=== PATIENT | female | born 1980 | race Caucasian/White ===

== ENCOUNTER 2016-12-04 09:57 | Inpatient (IN) ==
[2016-12-04] MEDS ORDERED: CeFAZolin Pre 2,000 MG/100 ML 2,000 MG/100 ML BAG IVPB ONE (10:23)
[2016-12-04] MEDS ORDERED: Famotidine 20 MG/2 ML VIAL IVP ONE (10:23)
[2016-12-04] MEDS ORDERED: Oxytocin 20 units/ LR 1000 mL 20 UNIT/1,000 ML BAG IVC ONE (10:23)
[2016-12-04] MEDS ORDERED: Famotidine 20 MG/2 ML VIAL IVP PRN (10:23)
[2016-12-04] MEDS ORDERED: Metoclopramide 10 MG/2 ML VIAL IVP ONE (10:23)
[2016-12-04] MEDS: Ringers Solution, Lactated 1,000 ML IVC SCH ×3 (10:46→19:53)
[2016-12-04 10:49] LABS: Basophils % 0.6 %; Eosinophils # 0.2 K/mcL (0.0-0.6); Eosinophils % 2.4 %; Hematocrit 35.3 % (35.3-44.9); Hemoglobin 12.2 g/dL (11.5-15.4); Immature Granulocytes % 0.6 % (0-4); Lymphocytes % 27.9 %; Mean Corpuscular HGB Conc 34.6 g/dL (31.6-35.5); Mean Corpuscular Hemoglobin 31.7 pg (28.0-33.3); Mean Corpuscular Volume 91.7 fL (83.0-100.0); Mean Platelet Volume 10.9 fL (9.4-12.4); Monocytes # 0.5 K/mcL (0.0-1.3); Monocytes % 6.3 %; Neutrophils # 4.4 K/mcL (1.6-8.9); Platelet Count 162 K/mcL (140-400); Red Blood Count 3.85 M/mcL (3.82-4.97); Red Cell Distribution Width 13.2 % (11.5-14.5); Segmented Neutrophils % 62.2 %
--- NOTE | 2016-12-04 10:59 | OB/GYN History & Physical ---
Date of Encounter: 12/04/16 Time of Encounter: 10:46 Assessment and Plan (1) 37 weeks gestation of Current visit: Yes Status: Acute Admit for scheduled medically necessary 37 week 0 day repeat LTCS Routine pre-op orders Fetus reactive on NST; category I; FHTs 120 with 15x15 accels and no decels. No contractions noted. Dr Gavin zavala patient is here (2) Previous delivery affecting , antepartum Current visit: Yes Status: Acute Admit for scheduled medically necessary 37 week 0 day repeat LTCS Routine pre-op orders Fetus reactive on NST; category I; FHTs 120 with 15x15 accels and no decels. No contractions noted. Dr Gavin zavala patient is here (3) Intrauterine growth restriction (IUGR) affecting care of mother, third trimester, single gestation Current visit: Yes Status: Acute Fetus less than 10th percentile per ultrasound on 12/01/16. Admit for scheduled medically necessary 37 week 0 day repeat LTCS Routine pre-op orders Fetus reactive on NST; category I; FHTs 120 with 15x15 accels and no decels. No contractions noted. Dr Gavin zavala patient is here History of Present Illness Chief complaint: Scheduled Repeat LTCS HPI: Ms. Graham is a 36 year old female at 37w 0 days gestation that presents for a scheduled repeat LTCS. Her was complicated by Post lap band procedure, advanced maternal age, and intrauterine growth restriction with an SGA fetus that measured less than 10th percentile on 12/01/16. Her blood type in is O negative. She is GBS negative. Her serology is as follows: Rubella immune , HbSAG nonreactive, HIV nonreactive, Varicella immune, and T-Pallidum negative. She states that her fetus is active and she denies vaginal bleeding/ discharge, headache, vision changes, epigastric pain, and cramping/contractions. Her most recent ultrasound was on 12/01/2016; Findings: The fetus is in the VTX position, the placenta is posterior grade 2. heart rate ranges from 115-123. The DONADL 12/26/16, 36w3d, UTS 32w4d, the efw is 2090 g <10% or 4lb 10oz , the ROHINI is 10cm. S/d ratio has good forward diastolic flow. -2.27/.56 Past Med Surg Social Fam HX - Past Medical History Medical history: no medical history Psychiatric history: no psych history - Past Surgical History Surgical History: , cholecystectomy, other, bariatric surgery - Social History Smoking Status: Never smoker Smokeless Tobacco Status: No Alcohol use: none Drug use: none Obstetrical History - Pregnancies : 2 Para: 1 Term: 1 (37 weeks) : 0 Ab's: 0 Livin Medications and Allergies Macrobid 1 tab PO BID 12/04/16 [History] Omeprazole [Omeprazole] 2 tab PO DAILY 12/04/16 [History] Vit Calc,Iron,Folic [ Vitamins] 1 tab PO DAILY 12/04/16 [ History] Allergies No Known Allergies Allergy (Verified 12/04/16 10:21) Review of System OB All systems PM: reviewed and no additional remarkable complaints except as stated Exam - Constitutional Constitutional: well developed, well nourished, no acute distress, average body habitus - HEENT HEENT: Normocephaly, Mucus Membranes Moist - Neck Neck exam: full ROM - Lungs Respiratory exam: CTAB - Cardiovascular Cardiovascular exam: RRR, +S1, +S2 - Abdomen Abdomen: Present: bowel sounds normal, gravid, non tender - Extremities Extremities exam: normal capillary refill, normal inspection, radial pulses palpable and symetrical Deep Tendon Reflex Grade: 2+ Normal - Uterus Uterus exam: Present: normal size (gravid) Results All other labs normal. - VTE Reasons for not Prescribing Prophylaxis: Treatment not Indicated - Low risk for VTE
--- NOTE | 2016-12-04 11:44 | Anesthesia Evaluation PreOp ---
Date of Encounter: 12/04/16 Time of Encounter: 11:30 - Past History Planned Operation: Repeat CSection Cardiac History: Other (Anemia) Pulmonary History: Denies Any Significant HX LOADING SHOVEL OILER History: Denies Any Significant HX Other Medical History: GERD Anesthesia History: No Prior Anesthetic Complications, Past Anesthesia (Stat CSection under GA) : Yes (37wks) Alcohol Use: none Drug use: none Medications and Allergies Macrobid 1 tab PO BID 12/04/16 [History] Omeprazole [Omeprazole] 2 tab PO DAILY 12/04/16 [History] Vit Calc,Iron,Folic [ Vitamins] 1 tab PO DAILY 12/04/16 [ History] Allergies No Known Allergies Allergy (Verified 12/04/16 10:21) - Meds/Allergy Pre-op Review Medications Reviewed: Yes Allergies Reviewed: Yes Beta Blockers on Current Med List: No Anesthesia Results - Labs 12/04/16 10:40 Anesthesia Exam Height: 1.57m Weight: 61.4kg NPO (# of Hours): >8hr Pain Scale: 0 Pain Scale Used: Numeric (1 - 10) - HEENT Pupil (Motor): Pupils equal Mallampati: II Teeth: Normal Oral Opening: Greater than 3 - LOADING SHOVEL OILER LOC: Oriented LOADING SHOVEL OILER Motor: Normal RUE, Normal LUE, Normal RLE, Normal LLE, Normal Face LOADING SHOVEL OILER Sensory: Normal: RUE, LUE, RLE, LLE, Face - Cardiac Rhythm: Regular Murmur: None JVD: No Carotid Bruit: No - Pulmonary Breath Sounds: bilateral Clear Respiratory Effort: Symmetrical Anesthesia Assess/Plan ASA Score: 2 Modified [place] Scale for Level of Consciousness: Cooperative, oriented, and tranquil Anesthetic Plan: Regional Monitoring Plan: Standard Monitors Recovery Plan: PACU
[2016-12-04] MEDS ORDERED: *HR* Oxytocin 10 UNIT/ML VIAL IM ONE ×2 (11:46→12:52)
[2016-12-04] MEDS ORDERED: *HR* FentaNYL (PF) 100 MCG/2 ML VIAL ONE (11:46)
[2016-12-04] MEDS ORDERED: *HR* Morphine Sulfate/PF 5 MG/10 ML AMPUL ONE (11:46)
[2016-12-04] MEDS ORDERED: EPHEDrine 50 MG/ML VIAL ONE (12:07)
[2016-12-04] MEDS ORDERED: Ondansetron 4 MG/2 ML VIAL IVP PRN ×2 (12:25→15:38)
[2016-12-04] MEDS ORDERED: *HR* HYDROmorphone (PF) 1 MG/ML SYRINGE IVP PRN (12:25)
[2016-12-04] MEDS ORDERED: Naloxone 0.4 MG/ML INJ IVP PRN ×2 (12:25→16:43)
[2016-12-04] MEDS ORDERED: Ringers Solution, Lactated 1,000 ML ONE (12:51)
--- NOTE | 2016-12-04 13:15 | OB/GYN Procedure Note ---
Section - Date of procedure: 12/04/16 Preop diagnosis: other ( at 37 0/7 wk., IUGR <10%, Previous section x1) Post-op diagnosis: same Procedure: repeat low transverse Surgeon: Artur Alonso Estimated blood loss (cc): 300 Nat Instructor: Diana Aquino ([email or web address]) Anesthesiologist: Art Louise Weapons Designer: Marvin Saha Anesthesia Type: Spinal section complications: none Disposition: L&D Recovery Room Specimens: Placenta, Cord blood - Infant (s) A Delivery Date: 12/04/16 Delivery Time: 12:33 Presentation: vertex Position: JACKI Route of delivery: other ( section) Gender: Female Viability: Viable Pounds: 4 Ounces: 7 Gram Weight: 2.015 kg at 1 minute: 8 at 5 minutes: 9 Shoulder Dystocia: not encountered Specimens collected: cord blood Placenta: spontaneous Cord: 3 umbilical vessels - Narrative Narrative: Patient is a 36-year-old 2 para 1 at 37-0/7 weeks who was brought in for repeat section secondary to IUGR. Patient had an ultrasound at the end of last week which placed the baby less than the 10th percentile for growth. All measurements were at the 2. 5th percentile. Biophysical was 10 out of 10. The SD ratio was 2.27 within the normal limits. Case was discussed with one of our partners who agreed waiting for 37 weeks then doing a repeat section. Procedure: Patient was taken to the operating room where spinal anesthesia was found be adequate. She was placed in the dorsal supine position with leftward tilt and prepped and draped in usual fashion. A timeout was then obtained. A Pfannenstiel incision was made with a scalpel removing all scar. Incision was then carried down through the underlying tissue to the fascia was identified. Fascia was nicked in the midline extended laterally with Irving scissors. The superior and inferior edges of the fascia grasped tented up and dissected off rectus muscles. Rectus muscles were in the midline parietal peritoneum was identified tented up and entered sharply. This was extended superiorly and inferiorly with Metzenbaum scissors. Bladder blade was inserted and vesicouterine peritoneum was identified tented up and entered sharply. This was extended laterally and the bladder flap created digitally. Lower uterine segment was incised with a scalpel and extended laterally with digital manipulation. Membranes ruptured clear fluid noted. Infant's head was delivered and nuchal cord body then was delivered of discomfort and cut and was handed off to waiting pediatric team. Cord blood was collected placenta was spontaneously delivered and the uterus was exteriorized and cleaned of all clots and debris. The lower uterine segment was then closed using an 0 Vicryl in a running locking stitch by a 2 layer closure. Good hemostasis was noted uterus is returned to the abdomen and gutters were cleaned of all clots and debris then copiously irrigated. No active bleeding noted the fascia was closed using a #1 Stratafix suture in a running stitch and the skin was closed using 4-0 Vicryl subcuticular manner. All needles lap sponge counts were correct 3 she did receive preoperative antibiotics patient will be taken to the recovery room observed for 2 hours before being taken floor.
[2016-12-04] MEDS ORDERED: Sennosides 8.6 MG TABLET PO PRN (15:38)
[2016-12-04] MEDS ORDERED: *HR* OxyCODONE/APAP 10/325 TABLET PO PRN (15:38)
[2016-12-04] MEDS ORDERED: Metoclopramide 10 MG/2 ML VIAL IVP PRN (15:38)
[2016-12-04] MEDS ORDERED: *HR* Morphine 2 MG/ML SYRINGE IVP PRN (16:43)
--- NOTE | 2016-12-04 16:47 | Anesthesia Evaluation Post Op ---
Date of Encounter: 12/04/16 Time of Encounter: 13:00 - Vital Signs Vital Signs: Vital Signs 12/04/16 15:30 12/04/16 16:02 12/04/16 16:30 Temperature 97.3 F L 97.6 F 97.4 F L Pulse Rate 59 60 62 Respiratory Rate 14 16 16 Blood Pressure 111/70 112/71 104/69 O2 Sat by Pulse Oximetry 100 100 96 - Lungs Lungs: Clear Ascult./Percussion - Airway Airway: Non-obstructed - Cardiovascular Regular Rate - Mental Status Mental Status: Alert & Oriented, Answers Appropriately - Pain Pain Scale: 5 Pain Scale used: Numeric (1 - 10) - Nausea Vomiting Nausea Vomiting: Not Present - Hydration Hydration: Ice chips, Tavarez catheter - Discharge PostOp Status: Transfer Patient to floor Attestation: Patient stable and communicative. MOEx4. Meets criteria for floor transfer.
[2016-12-04] MEDS: *HR* HYDROmorphone (PF) 1 MG/ML SYRINGE IVP PRN ×2 (18:08→20:58)
[2016-12-04] MEDS: Simethicone 80 MG TAB.CHEW PO PRN (19:52)
[2016-12-05] MEDS: *HR* OxyCODONE/APAP 5/325 TABLET PO PRN ×4 (01:00→21:10)
[2016-12-05] MEDS: Ibuprofen 600 MG TABLET PO PRN ×3 (03:57→15:45)
[2016-12-05] MEDS: Ringers Solution, Lactated 1,000 ML IVC SCH (03:58)
[2016-12-05 04:48] LABS: Basophils % 0.3 %; Eosinophils % 0.2 %; Hematocrit 32.3 % (35.3-44.9); Hemoglobin 10.8 g/dL (11.5-15.4); Immature Granulocytes % 0.6 % (0-4); Mean Corpuscular HGB Conc 33.4 g/dL (31.6-35.5); Mean Corpuscular Hemoglobin 30.5 pg (28.0-33.3); Mean Corpuscular Volume 91.2 fL (83.0-100.0); Mean Platelet Volume 10.9 fL (9.4-12.4); Monocytes # 0.4 K/mcL (0.0-1.3); Monocytes % 3.3 %; Neutrophils # 11.3 K/mcL (1.6-8.9); Platelet Count 145 K/mcL (140-400); Red Blood Count 3.54 M/mcL (3.82-4.97); Red Cell Distribution Width 12.8 % (11.5-14.5); Segmented Neutrophils % 87.6 %
[2016-12-05] MEDS ORDERED: NON-FORMULARY MEDICATION 1 EACH EACH (Prenatal Vit Calc,Iron,Folic [Prenatal Vitamins] 1 T PO SCH (09:00)
[2016-12-05] MEDS ORDERED: Prenatal Vit/FA 1 EACH TABLET PO SCH (09:00)
[2016-12-05] MEDS: Simethicone 80 MG TAB.CHEW PO PRN (09:36)
--- NOTE | 2016-12-05 10:20 | OB/GYN Progress Note ---
Date of Encounter: 12/05/16 Time of Encounter: 10:18 - Assessment and Plan (1) delivery delivered Current Visit: Yes Status: Acute Stable postop day #1 Continue current management plan anticipate discharge tomorrow Subjective - Subjective Interval history: Patient resting in bed no complaints at this time Tavarez remains in place Patient reports: pain well controlled, other (Tavarez in place. ) [place]: doing well Objective - Vital Signs Latest vital signs: Vital Signs Temp Pulse Resp BP Pulse Ox 12/05/16 10:06 16 12/05/16 08:00 97.6 F 58 16 115/79 96 12/05/16 03:50 16 12/05/16 03:46 98.1 F 48 16 115/70 95 12/05/16 00:40 98.2 F 65 16 112/62 95 12/04/16 20:28 98.0 F 66 14 112/69 94 12/04/16 18:40 97.9 F 66 16 111/64 96 12/04/16 18:30 97.9 F 66 16 111/64 96 12/04/16 17:30 97.6 F 68 16 111/76 96 12/04/16 16:30 97.4 F L 62 16 104/69 96 12/04/16 16:02 97.6 F 60 16 112/71 100 12/04/16 15:30 97.3 F L 59 14 111/70 100 Intake and Output 12/04/16 12/05/16 12/05/16 23:59 07:59 15:59 Intake Total 60 / 60 975 / 975 260 / 260 Output Total 200 / 200 50 / 50 Balance -140 / -140 925 / 925 260 / 260 Intake: IV Fluids 975 / 975 Lactated Ringers 1,000 ML 975 / 975 @ 125 mls/hr IVC .Q8H [facility] Rx#:[id number] Oral 60 / 60 0 / 0 260 / 260 Output: Catheter 200 / 200 50 / 50 Other: Stool Characteristics Normal for Patient Normal for Patient - Exam Lungs: bilateral: normal Chest: Normal S1, Normal S2 Extremities: Present: normal Abdomen: Present: normal appearance, soft Incision: Present: dressed Uterus: Present: firm - Labs Labs: Laboratory Results - last 24 hr 12/04/16 12/04/16 12/05/16 10:40 13:30 04:06 WBC 7.1 12.9 H D RBC 3.85 3.54 L Hgb 12.2 10.8 L Hct 35.3 32.3 L MCV 91.7 91.2 MCH 31.7 30.5 MCHC 34.6 33.4 RDW 13.2 12.8 Plt Count 162 145 MPV 10.9 10.9 Immature Gran % 0.6 0.6 Seg Neutrophils % 62.2 87.6 Lymphocytes % 27.9 8.0 Monocytes % 6.3 3.3 Eosinophils % 2.4 0.2 Basophils % 0.6 0.3 Neutrophils # 4.4 11.3 H Lymphocytes # 2.0 1.0 Monocytes # 0.5 0.4 Eosinophils # 0.2 0.0 Basophils # 0.0 0.0 Screen NEGATIVE Baby's Blood Type O RH POSITIVE Mother's Blood Type O RH NEGATIVE Rhogam Indicated YES Rhogam Req for Mother 1
--- NOTE | 2016-12-06 08:04 | Discharge Summary ---
Date of Encounter: 12/06/16 Time of Encounter: 08:01 - Discharge Diagnosis (1) Breast feeding status of mother Priority: Secondary Status: Acute Comments: support prn (2) delivery delivered Priority: Primary Status: Acute Comments: continue routine postop/ care discharge home today follow up in 2 weeks for incision check with Dr. Alonso - Discharge Medications Prescriptions: OxyCODONE/APAP 5/325 [Percocet 5/325 MG] 1 each PO Q4HR PRN #30 tablet PRN Reason: Moderate pain 4-6 Ibuprofen [Motrin] 600 mg PO Q6HR PRN #60 tablet PRN Reason: Cramping Breast Pump [BREAST PUMP] 1 each .ROUTE AD #1 each Docusate [Colace] 100 mg PO BID #60 capsule Home Medications: Vit Calc,Iron,Folic [ Vitamins] 1 tab PO DAILY 12/04/16 [ History] Breast Pump [BREAST PUMP] 1 each .ROUTE AD #1 each 12/06/16 [Rx] Docusate [Colace] 100 mg PO BID #60 capsule 12/06/16 [Rx] Ibuprofen [Motrin] 600 mg PO Q6HR PRN #60 tablet 12/06/16 [Rx] OxyCODONE/APAP 5/325 [Percocet 5/325 MG] 1 each PO Q4HR PRN #30 tablet 12/06/16 [Rx] Vit/FA 1 each PO DAILY tablet 12/06/16 [Rx] Allergies/Adverse Reactions: Allergies No Known Allergies Allergy (Verified 12/04/16 10:21) Data Procedures and tests throughout hospitalization: Laboratory Tests 12/04/16 12/04/16 12/05/16 10:40 13:30 04:06 WBC 7.1 12.9 H D RBC 3.85 3.54 L Hgb 12.2 10.8 L Hct 35.3 32.3 L MCV 91.7 91.2 MCH 31.7 30.5 MCHC 34.6 33.4 RDW 13.2 12.8 Plt Count 162 145 MPV 10.9 10.9 Immature Gran % 0.6 0.6 Seg Neutrophils % 62.2 87.6 Lymphocytes % 27.9 8.0 Monocytes % 6.3 3.3 Eosinophils % 2.4 0.2 Basophils % 0.6 0.3 Neutrophils # 4.4 11.3 H Lymphocytes # 2.0 1.0 Monocytes # 0.5 0.4 Eosinophils # 0.2 0.0 Basophils # 0.0 0.0 Screen NEGATIVE Baby's Blood Type O RH POSITIVE Mother's Blood Type O RH NEGATIVE Rhogam Indicated YES Rhogam Req for Mother 1 Labs on day of discharge: Labs from last 24 hours 12/04/16 13:30 Screen NEGATIVE Rhogam Req for Mother 1 Date of admission: 12/04/16 09:57 Primary care physician: Lexi Rodriguez DO Discharging clinician: Lorena Richardson Anticipated date of discharge: 12/06/16 - Patient Status Disposition: Home, Self-Care Condition: Good Functional capacity at discharge: independent ambulation - Discharge Instructions Follow Up With: Lexi Rodriguez DO [Primary Care Provider] - Artur Alonso DO [Partnered Physician] - - Diet and Activity Activity: increase activity as tolerated Diet: regular diet Hospital Course Procedures: OARRS report reviewed by PANDA Cervantes prior to discharge Delivery: section Episiotomy: none Laceration: none Other procedures: none complications: none baby: female (breast feeding) Time Attestation: Total time spent providing and/or coordinating discharge services: Time Spent: Less than 30 minutes - VTE Reasons for not Prescribing Prophylaxis: Treatment not Indicated - Low risk for VTE Documentation of Mechanical Device: Intermittent pneumatic compression device Exam - Constitutional Vitals: Temp Pulse Resp BP Pulse Ox 98.1 F 56 18 110/72 94 12/05/16 20:00 12/05/16 20:00 12/05/16 20:00 12/05/16 20:00 12/05/16 20:00 General appearance IM: A&O X 3, pleasant, answers questions appropriately - Respiratory Respiratory exam: Present: CTAB - Cardiovascular Cardiovascular exam IM: Present: RRR, +S1, +S2 - GI/Abdominal GI/Abdominal exam IM: normal bowel sounds Incision: normal, dry, intact, other (dressing removed. Steri strip present) - Uterine Tone: Firm Uterus Position: 2 Fingers Below Umbilicus, Midline - Extremities Exam Extremities exam IM: Present: full ROM, normal capillary refill, normal inspection - Neurological Exam Neurological exam: alert, oriented X3, reflexes normal
[2016-12-07 11:26] VITALS: BP 126/76
== END 2016-12-06 12:30 | disposition home or self-care (01) | DRG 766 ==
LOC: 1NENULAB 09:57 → 1NENUOBS 15:35
PROVIDERS: ADMIT Obstetrics & Gynecology; ATTEND Obstetrics & Gynecology

== ENCOUNTER → 2018-05-29 15:09 | Observation (INO) ==
[2018-05-29 14:05] LABS: Bilirubin,Urine Negative (Negative); Blood,Urine Negative (Negative); Clarity,Urine Turbid (Clear); Color,Urine Yellow (Yellow); Glucose,Urine (UA) Normal (Normal); Ketones,Urine 40 mg/dL (Negative); Leukocyte Esterase,Urine Small (Negative); Nitrite,Urine Negative (Negative); PH,Urine 7.5 pH Units (5.0-8.0); Protein,Urine Negative (Neg-Trace); Specific Gravity,Urine 1.013 (1.010-1.025); Urobilinogen,Urine Normal (Normal)
[2018-05-29 14:06] LABS: Bacteria,Urine None Seen per hpf (None-Few); Hyaline Casts,Urine None Seen per lpf (None-Few); RBC,Urine 0-3 per hpf (0-3); Squamous Epithelial Cell,Urine Many per lpf (None-Few)
--- NOTE | 2018-05-29 14:47 | Discharge Summary ---
Date of Encounter: 05/29/18 Time of Encounter: 14:48 - Discharge Diagnosis (1) 31 weeks gestation of Priority: Primary Status: Acute Comments: Admitted for observation for labor. Rare contractions noted on monitor. Cervix closed thick and high on sterile vaginal exam (2) Back pain affecting in third trimester Priority: Secondary Status: Acute Comments: Recommended menagerie caretaker with or without massage therapy. Heating pad to back as needed. support belt and Tylenol as needed for back pain. No CVA tenderness noted. (3) Abdominal cramping affecting Priority: Secondary Status: Acute Comments: Rare contractions noted on monitor. Cervix is closed. Recommended increased water intake. (4) Non-stress test reactive Priority: Secondary Status: Acute Comments: FHR 130 bpm, moderate variability, 15 x 15 excels, no decelerations. - Discharge Medications Home Medications: Vit Calc,Iron,Folic [ Vitamins] 1 tab PO DAILY 12/04/16 [History] Tums 1 tab PO PRN PRN 05/29/18 [History] Allergies/Adverse Reactions: Allergy/AdvReac Type Severity Reaction Status Date / Time No Known Allergies Allergy Verified 12/04/16 10:21 Data Procedures and tests throughout hospitalization: Laboratory Tests 05/29/18 05/29/18 Unknown Unknown Urine Color Yellow Urine Clarity Turbid A Urine pH 7.5 Ur Specific [place] 1.013 Urine Protein Negative Urine Glucose (UA) Normal Urine Ketones 40 H Urine Blood Negative Urine Nitrite Negative Urine Bilirubin Negative Urine Urobilinogen Normal Ur Leukocyte Esterase Small H Ur Drug Screen Interp See Below Labs on day of discharge: Labs from last 24 hours 05/29/18 05/29/18 Unknown Unknown Urine Color Yellow Urine Clarity Turbid A Urine pH 7.5 Ur Specific [place] 1.013 Urine Protein Negative Urine Glucose (UA) Normal Urine Ketones 40 H Urine Blood Negative Urine Nitrite Negative Urine Bilirubin Negative Urine Urobilinogen Normal Ur Leukocyte Esterase Small H Ur Drug Screen Interp See Below Date of admission: 05/29/18 12:54 Primary care physician: Lexi Rodriguez DO Discharging clinician: Sulma Bocanegra Anticipated date of discharge: 05/29/18 - Patient Status Disposition: Home, Self-Care Condition: Good Functional capacity at discharge: independent ambulation Overall status at discharge: patient is back to baseline - Discharge Instructions Follow Up With: Lexi Rodriguez DO [Primary Care Provider] - Artur Alonso DO [Partnered Physician] - - Diet and Activity Activity: resume usual activities as tolerated Diet: regular diet Hospital Course SIGNAL PROCESSING ENGINEER Hospital course: Melvin arrived today with complaints of dull back pain 2 days. She reports positive movement, denies bleeding, reports normal white vaginal discharge. States her previous infant was born at 34 weeks due to IUGR. She reports concern today and wanted to make sure the baby was okay and that she was not in labor. Her cervix is closed thick and high. She has a reactive NST and rare contractions noted on monitor. Her UA shows slight dehydration positive ketones. Patient states she has been nauseated throughout this and has not eaten since last night. Her exam reveals no CVA tenderness. The uterus is soft and nontender to palpation. She was advised on the benefits of menagerie caretaker and massage therapy. She is also instructed that she can take Tylenol, use a heating pad, or try a warm bath or shower for her back pain. Also discussed the use of a support belt. Patient is scheduled to follow-up with Dr. Alonso on 06/05/18. Time Attestation: Total time spent providing and/or coordinating discharge services: Time Spent: Less than 30 minutes Exam - Constitutional General appearance IM: A&O X 3, pleasant, no acute distress - Respiratory Respiratory exam: Present: CTAB - Cardiovascular Cardiovascular exam IM: Present: RRR, +S1, +S2 - GI/Abdominal GI/Abdominal exam IM: normal bowel sounds, soft - Rectal Rectal exam: deferred - Extremities Exam Extremities exam IM: Present: full ROM, normal capillary refill, normal inspection - Neurological Exam Neurological exam: alert, normal gait, oriented X3 - VTE Reasons for not Prescribing Prophylaxis: Treatment not Indicated - Low risk for VTE
[2018-05-29 14:49] LABS: Amphetamine Screen,Urine Negative ng/mL (Cutoff=1000); Barbiturate Screen,Urine Negative ng/mL (Cutoff=200); Benzodiazepines Screen,Urine Negative ng/mL (Cutoff=200); Cannabinoid Screen,Urine Negative ng/mL (Cutoff = 50); Cocaine Screen,Urine Negative ng/mL (Cutoff= 300); Opiate Screen,Urine Negative ng/mL (Cutoff=300); Phencyclidine Screen,Urine Negative ng/mL (Cutoff=25)
== END | disposition home or self-care (01) ==
LOC: 1NENULAB
PROVIDERS: ADMIT Registered Nurse; ATTEND Registered Nurse

== ENCOUNTER 2018-07-19 06:01 | Inpatient (IN) ==
[2018-07-19] MEDS ORDERED: Ringers Solution, Lactated 1,000 ML IVC ONE (06:21)
[2018-07-19] MEDS ORDERED: Metoclopramide 10 MG/2 ML VIAL IVP ONE (06:21)
[2018-07-19] MEDS ORDERED: CeFAZolin Premix DUPLEX 2,000 MG/50 ML BAG IVPB ONE (06:21)
[2018-07-19] MEDS ORDERED: Oxytocin 20 units/ LR 1000 mL 20 UNIT/1,000 ML BAG IVC ONE (06:21)
[2018-07-19] MEDS ORDERED: Ringers Solution, Lactated 1,000 ML ONE ×3 (06:28→09:10)
[2018-07-19] MEDS ORDERED: Ringers Solution, Lactated 1,000 ML IVC SCH ×2 (06:30→12:40)
[2018-07-19] MEDS ORDERED: Oxytocin 20 units/ LR 1000 mL 20 UNIT/1,000 ML BAG IVC SCH ×3 (06:30→12:40)
[2018-07-19 06:37] LABS: Basophils % 0.4 %; Eosinophils # 0.5 K/mcL (0.0-0.6); Hematocrit 34.5 % (35.3-44.9); Hemoglobin 11.7 g/dL (11.5-15.4); Immature Granulocytes % 0.5 % (0-4); Lymphocytes # 2.2 K/mcL (0.6-4.6); Lymphocytes % 28.9 %; Mean Corpuscular HGB Conc 33.9 g/dL (31.6-35.5); Mean Corpuscular Volume 91.3 fL (83.0-100.0); Mean Platelet Volume 9.9 fL (9.4-12.4); Monocytes # 0.6 K/mcL (0.0-1.3); Monocytes % 7.2 %; Neutrophils # 4.3 K/mcL (1.6-8.9); Platelet Count 197 K/mcL (140-400); Red Blood Count 3.78 M/mcL (3.82-4.97); Red Cell Distribution Width 13.7 % (11.5-14.5)
[2018-07-19 06:42] LABS: Amphetamine Screen,Urine Negative ng/mL (Cutoff=1000); Barbiturate Screen,Urine Negative ng/mL (Cutoff=200)
[2018-07-19 06:43] LABS: Benzodiazepines Screen,Urine Negative ng/mL (Cutoff=300); Cannabinoid Screen,Urine Negative ng/mL (Cutoff = 50); Cocaine Screen,Urine Negative ng/mL (Cutoff= 300); Opiate Screen,Urine Negative ng/mL (Cutoff=300); Phencyclidine Screen,Urine Negative ng/mL (Cutoff=25)
--- NOTE | 2018-07-19 07:15 | OB/GYN History & Physical ---
Date of Encounter: 07/19/18 Time of Encounter: 07:13 Assessment and Plan (1) and not yet delivered in third trimester Current visit: Yes Status: Acute (2) 39 weeks gestation of Current visit: Yes Status: Acute (3) Previous delivery affecting , antepartum Current visit: No Status: Acute Patient will be scheduled for a repeat low transverse section. History of Present Illness HPI: Ms. Graham is a 38 year old female 3 para 2 at 39-0/7 weeks who presented for repeat low transverse section. Patient has a history of 2 previous sections and is requiring a repeat. Patient's course has been unremarkable patient was seen by maternal medicine due to advanced maternal age no complications. Patient had an ultrasound approximately 3 weeks ago baby was 2816 g at the 50th percentile fluid was normal. She denies any regular contractions denies any leaking of fluid no vaginal bleeding. Patient is GBS negative, she is O-, rubella positive, Varicella negative Past Med Surg Social Fam HX - Past Medical History Source: patient, old records reviewed Medical history: no medical history Psychiatric history: anxiety, depression - Past Surgical History Surgical History: (x2), cholecystectomy, other, bariatric surgery Additional surgical history: "tumor removed from chest as child" - Social History Smoking Status: Never smoker Smokeless Tobacco Status: No Alcohol use: none Drug use: none Occupational status: employed Current living situation: Home - Independent Activity Level: Independent ambulation Recent Out of Country Travel Within the Last 8 Weeks: No Exposure or Possible Exposure to Illness During Travel: No - Family History Mother Living Status: Still Living Hx Family Cardiac Disorders: Yes (DE, Hypotension) Hx Family Respiratory Disorders: No Hx Family Cancer: No Hx Family GI Disorders: No Hx Family Endocrine Disorder: No Hx Family Neuromuscular Disorders: No Hx Family Neurologic Disorders: No Hx Family HEENT Disorders: No Hx Family Autoimmune Disorders: No Father Adopted: No Living Status: Hx Family Cardiac Disorders: Yes ( of heart attack) Hx Family Respiratory Disorders: No Hx Family Cancer: No Hx Family GI Disorders: No Hx Family Genitourinary Disorders: No Hx Family Endocrine Disorder: No Hx Family Musculoskeletal Disorders: No Hx Family Neuromuscular Disorders: No Hx Family Neurologic Disorders: No Hx Family HEENT Disorders: No Hx Family Autoimmune Disorders: No Hx Family Reproductive Disorders: No Hx Family Psychosocial Disorders: No Hx Family Medical Disorders: No - Additional Family History Additional family history: Family history noncontributory Obstetrical History - Pregnancies : 3 Para: 2 Livin Medications and Allergies Vit Calc,Iron,Folic [ Vitamins] 1 tab PO DAILY 12/04/16 [History] Tums 1 tab PO PRN PRN 05/29/18 [History] Allergy/AdvReac Type Severity Reaction Status Date / Time No Known Allergies Allergy Verified 12/04/16 10:21 Review of System OB All systems PM: reviewed and no additional remarkable complaints except as stated Exam - Constitutional Constitutional: well developed, well nourished, no acute distress, average body habitus - HEENT HEENT: EOMI, PERRL, Mucus Membranes Moist - Neck Neck exam: full ROM - Lungs Respiratory exam: CTAB - Cardiovascular Cardiovascular exam: RRR - Abdomen Abdomen: Present: bowel sounds normal, gravid ( heart tones 140s reactive no contraction seen) - Vagina Vagina: Present: normal moisture - Cervix Dilation: 1 Effacement: 50 Station: -3 Results Result Diagrams: 07/19/18 06:10 Abnormal lab results RBC 3.78 M/mcL (3.82-4.97) L 07/19/18 06:10 Hct 34.5 % (35.3-44.9) L 07/19/18 06:10 All other labs normal.
[2018-07-19] MEDS ORDERED: Famotidine 20 MG/2 ML VIAL IVP ONE (07:42)
--- NOTE | 2018-07-19 08:13 | Anesthesia Evaluation PreOp ---
Date of Encounter: 07/19/18 Time of Encounter: 08:10 - Past History Planned Operation: Repeat low transverse Cardiac History: Denies any Significant Hx Pulmonary History: Denies Any Significant HX IMPROVEMENT AUDITOR History: Denies Any Significant HX Other Medical History: Denies Any Significant HX Anesthesia History: No Prior Anesthetic Complications (previous single shot sp inal--no complications; denies personal and family h/o GA complications), Past Anesthesia ( x 2, Lx cholecystectomy, bariatric surgery) : Yes Alcohol Use: none Drug use: none Medications and Allergies Vit Calc,Iron,Folic [ Vitamins] 1 tab PO DAILY 12/04/16 [History] Tums 1 tab PO PRN PRN 05/29/18 [History] Allergy/AdvReac Type Severity Reaction Status Date / Time No Known Allergies Allergy Verified 12/04/16 10:21 Anesthesia Results - Labs 07/19/18 06:10 Anesthesia Exam 105/68, HR 69 O2 Sat Height 1.57 m Weight 74.1 kg NPO (# of Hours): solids > 8hr Pain Scale: 0 Pain Scale Used: Numeric (1 - 10) - HEENT Pupil (Motor): Pupils equal Mallampati: II Teeth: Normal Oral Opening: Greater than 3 - IMPROVEMENT AUDITOR LOC: Oriented IMPROVEMENT AUDITOR Motor: Normal RUE, Normal LUE, Normal RLE, Normal LLE, Normal Face IMPROVEMENT AUDITOR Sensory: Normal: RUE, LUE, RLE, LLE, Face - Cardiac Rhythm: Regular Murmur: None - Pulmonary Breath Sounds: bilateral Clear Respiratory Effort: Symmetrical Anesthesia Assess/Plan ASA Score: 2 Level of consciousness: Cooperative, Oriented, Tranquil Anesthetic Plan: Spinal Autologous Blood: No Monitoring Plan: Standard Monitors Recovery Plan: PACU
[2018-07-19] MEDS ORDERED: Bupivacaine/PF 0.75% in Dex 2 ML AMPUL INFILT ONE (08:17)
[2018-07-19] MEDS ORDERED: Lidocaine -MPF 1% 5 ML AMPUL ONE (08:23)
[2018-07-19] MEDS ORDERED: *HR* Morphine Sulfate/PF 10 MG/10 ML AMPUL ONE (08:23)
[2018-07-19] MEDS ORDERED: *HR* FentaNYL (PF) 100 MCG/2 ML VIAL ONE (08:23)
[2018-07-19] MEDS ORDERED: *HR* Oxytocin 10 UNIT/ML VIAL IM ONE ×2 (08:26→09:24)
[2018-07-19] MEDS ORDERED: *HR* Phenylephrine 10 MG/ML VIAL ONE (09:05)
[2018-07-19] MEDS ORDERED: Ondansetron 4 MG/2 ML VIAL ONE (09:08)
--- NOTE | 2018-07-19 09:30 | Anesthesia Procedures ---
Date of Encounter: 07/19/18 Time of Encounter: 09:00 Procedures: Anesthesia - Epidural/Spinal Patient ID/Chart reviewed: Yes Patient examined: Yes OB Eval: Gestational age: 39 weeks 0 days OB Eval: : 3 OB Eval: Hx Para: 2 OB Eval: Contractions: Non-stressed pattern Consent Obtained: Yes Supplemental Oxygen: None/Room Air Site Prep: Aseptic Technique, Sterile prep and drape, Povidone-Iodine 1% Patient position: upright Local Anesthetic: Lidocaine 1% Amount of Local Anesthetic used: 3 Interspace Used: L4-L5 Loss of Resistance (KRISTAN): No Blood: No CSF: Yes Paresthesia: No Spinal Needle Gauge: 25 (3.5" pencan needle) Spinal Dose: see anesthesia record Procedure: successful on 1st attempt; Pt tolerated procedure well; VSS Vitals + FHT's: see anesthesia record
[2018-07-19] MEDS ORDERED: Acetaminophen IV 1,000 MG/100 ML INFUS..BTL IVPB ONE (09:40)
[2018-07-19] MEDS ORDERED: Ondansetron 4 MG/2 ML VIAL IVP PRN ×2 (09:40→12:40)
[2018-07-19] MEDS ORDERED: Naloxone 0.4 MG/ML INJ IVP PRN ×2 (09:40→12:40)
[2018-07-19] MEDS ORDERED: *HR* Promethazine 25 MG/ML VIAL IVP PRN (09:40)
--- NOTE | 2018-07-19 10:03 | OB/GYN Procedure Note ---
Section - Date of procedure: 07/19/18 Preop diagnosis: other (Term 39 as her symptoms weeks, previous section 2, advanced maternal age) Post-op diagnosis: same Procedure: repeat low transverse Surgeon: Artur Alonso Quantitated Blood Loss: 300 Was there an career services assistant present: Yes Android Ui Developer: Preston Dowling ([email or web address]) Glove Sewer: Luis Angel Gonzalez Anesthesia Type: Spinal section complications: none Disposition: L&D Recovery Room - Infant (s) A Infant Delivery Date: 07/19/18 Infant Delivery Time: 09:23 Presentation: vertex Route of delivery: other ( section) Gender: Male Pounds: 5 Ounces: 15 Gram Weight: 2680 kg at 1 minute: 9 at 5 minutes: 9 Shoulder Dystocia: not encountered Specimens collected: cord blood Placenta: spontaneous Cord: 3 umbilical vessels - Narrative Narrative: Patient is a 38-year-old 3 para 2 at 39 and 0 since weeks who presented for repeat low transverse section. Patient has a history of 2 previous sections she was scheduled for repeat patient had an uncomplicated course patient did not want to get a tubal ligation at this time. Procedure: Patient taken to the operating room where spinal anesthesia was found be adequate. She was placed in the dorsal supine position with a leftward tilt prepped and draped in usual fashion. Timeout was obtained. A Pfannenstiel incision was made with a scalpel carried through the underlying tissue to the fascia was identified. Fascia was nicked in midline extended laterally with the Irving scissors. The superior and inferior edge of the fascia grasped tented up and dissected off the rectus muscles rectus muscles were in midline parietal peritoneum was identified tented up and entered sharply. Bladder blade was inserted this uterine peritoneum was identified tented up and entered sharply. Bladder flap was created digitally bladder blade was reinserted and the lower uterine segment was incised with the scalpel extended laterally with digital manipulation. Membranes were ruptured clear fluid noted infant was delivered was clamped and cut infant was handed off to waiting pediatric team. Cord blood was collected placenta was then delivered spontaneously 3 vessel cord. Uterus was exteriorized cleared of all clots and debris. The lower uterine segment was closed using an 0 Vicryl in a running locking stitch March related closure. Good hemostasis was noted ovaries tubes were normal. Uterus was returned to the abdomen and gutters were cleaned of all clots and debris and copiously irrigated. Active bleeding was noted the fascia was then closed using a #1 Stratafix in a running stitch and the skin was closed using a 4-0 Vicryl in a subcuticular manner and needles AND sponge counts were correct 3 she did receive preoperative antibodies. A PRINEO dressing was applied and the patient was taken to the recovery room in stable condition.
--- NOTE | 2018-07-19 11:10 | Anesthesia Evaluation Post Op ---
Date of Encounter: 07/19/18 Time of Encounter: 11:09 - Vital Signs Vital Signs: 103/84, HR 72, RR 18 - Lungs Lungs: Clear Ascult./Percussion - Airway Airway: Non-obstructed - Cardiovascular Regular Rate - Mental Status Mental Status: Alert & Oriented, Answers Appropriately - Pain Pain Scale: 0 Pain Scale used: Numeric (1 - 10) - Nausea Vomiting Nausea Vomiting: Not Present - Hydration Hydration: NPO, Tavarez catheter - Discharge PostOp Status: Transfer Patient to floor
[2018-07-19] MEDS ORDERED: Metoclopramide 10 MG/2 ML VIAL IVP PRN (12:40)
[2018-07-19] MEDS ORDERED: Rho Immune Globulin 1,500 UNIT SYRINGE IM ONE (12:40)
[2018-07-19] MEDS ORDERED: *HR* HYDROmorphone (PF) 1 MG/ML SYRINGE IVP PRN (12:40)
[2018-07-19] MEDS ORDERED: Simethicone 80 MG TAB.CHEW PO PRN (12:40)
[2018-07-19] MEDS ORDERED: Sennosides 8.6 MG TABLET PO PRN (12:40)
[2018-07-19] MEDS: Ibuprofen 600 MG TABLET PO PRN (20:43)
[2018-07-20] MEDS ORDERED: Ringers Solution, Lactated 1,000 ML ONE (00:53)
[2018-07-20 04:25] LABS: Basophils % 0.2 %; Eosinophils # 0.5 K/mcL (0.0-0.6); Eosinophils % 3.9 %; Immature Granulocytes % 0.5 % (0-4); Lymphocytes # 1.4 K/mcL (0.6-4.6); Lymphocytes % 11.1 %; Mean Corpuscular HGB Conc 33.8 g/dL (31.6-35.5); Mean Corpuscular Hemoglobin 31.7 pg (28.0-33.3); Mean Corpuscular Volume 93.9 fL (83.0-100.0); Mean Platelet Volume 10.2 fL (9.4-12.4); Monocytes # 0.6 K/mcL (0.0-1.3); Monocytes % 4.6 %; Neutrophils # 10.1 K/mcL (1.6-8.9); Platelet Count 155 K/mcL (140-400); Red Blood Count 3.09 M/mcL (3.82-4.97); Red Cell Distribution Width 13.6 % (11.5-14.5); Segmented Neutrophils % 79.7 %
[2018-07-20 04:31] LABS: Hemoglobin 9.8 g/dL (11.5-15.4)
[2018-07-20] MEDS: Ibuprofen 600 MG TABLET PO PRN ×3 (05:35→23:27)
[2018-07-20] MEDS: *HR* OxyCODONE/APAP 5/325 TABLET PO PRN ×4 (08:54→23:31)
[2018-07-20] MEDS: Prenatal Vit/FA 1 EACH TABLET PO SCH (08:55)
[2018-07-20] MEDS ORDERED: NON-FORMULARY MEDICATION 1 EACH EACH (Prenatal Vit Calc,Iron,Folic [Prenatal Vitamins] 1 T PO SCH (09:00)
--- NOTE | 2018-07-20 11:54 | OB/GYN Progress Note ---
Date of Encounter: 07/20/18 Time of Encounter: 11:53 - Assessment and Plan (1) Breast feeding status of mother Current Visit: No Status: Acute (2) delivery delivered Current Visit: No Status: Acute Pt meeting POD1 milestones. Await flatus. Anticipate discharge home POD#2. Subjective - Subjective Patient reports: appetite normal, voiding normally, pain well controlled, ambulating normally [place]: doing well Objective - Vital Signs Latest vital signs: Vital Signs Temp Pulse Pulse Resp BP Pulse Ox 07/20/18 08:20 98.3 F 59 14 90/51 94 07/20/18 05:15 98.1 F 53 14 106/65 95 07/20/18 00:24 98.1 F 58 16 93/56 95 07/19/18 20:35 97.9 F 60 60 12 107/69 95 07/19/18 17:22 97.5 F L 50 16 98/49 07/19/18 14:30 97.4 F L 54 16 100/55 95 07/19/18 13:30 97.6 F 58 16 96/57 95 07/19/18 13:00 97.6 F 58 16 96/57 95 07/19/18 12:30 97.5 F L 53 14 105/54 95 Intake and Output 07/19/18 07/20/18 07/20/18 23:59 07:59 15:59 Intake Total 120 / 120 Output Total 250 / 250 800 / 800 Balance -250 / -250 -680 / -680 Intake: Oral 120 / 120 Output: Urine 300 / 300 Catheter 250 / 250 500 / 500 Other: Weight 73.709 kg Patient Weight 07/20/18 23:59 Weight 73.709 kg - Exam Lungs: bilateral: normal Chest: Normal S1, Normal S2 Extremities: Present: normal Abdomen: Present: soft Incision: Present: intact Uterus: Present: firm Fundal Height: 1 (U/1) - Labs Labs: Laboratory Results - last 24 hr 07/19/18 07/20/18 10:20 03:57 WBC 12.7 H D RBC 3.09 L Hgb 9.8 L D Hct 29.0 L MCV 93.9 MCH 31.7 MCHC 33.8 RDW 13.6 Plt Count 155 MPV 10.2 Immature Gran % 0.5 Seg Neutrophils % 79.7 Lymphocytes % 11.1 Monocytes % 4.6 Eosinophils % 3.9 Basophils % 0.2 Neutrophils # 10.1 H Lymphocytes # 1.4 Monocytes # 0.6 Eosinophils # 0.5 Basophils # 0.0 Screen NEGATIVE Baby's Blood Type O RH POSITIVE Mother's Blood Type O RH NEGATIVE Rhogam Indicated YES Rhogam Req for Mother 1
[2018-07-20] MEDS ORDERED: Rho Immune Globulin 1,500 UNIT SYRINGE IM ONE (16:15)
[2018-07-21] MEDS: Ibuprofen 600 MG TABLET PO PRN (05:40)
[2018-07-21 08:08] VITALS: BP 112/76
--- NOTE | 2018-07-21 09:07 | Discharge Summary ---
Date of Encounter: 07/21/18 Time of Encounter: 09:05 - Discharge Diagnosis (1) Breast feeding status of mother Priority: Secondary Status: Acute (2) delivery delivered Priority: Primary Status: Acute Comments: Pt meeting post-op milestones. Discharge home today. - Discharge Medications Prescriptions: Ibuprofen [Motrin] 600 mg PO Q6HR PRN #30 tablet PRN Reason: Cramping OxyCODONE/APAP 5/325 [Percocet 5/325 MG] 1 each PO Q6HR PRN 7 Days #28 tablet PRN Reason: Moderate pain 4-6 Docusate [Colace] 100 mg PO BID #60 capsule Home Medications: Vit Calc,Iron,Folic [ Vitamins] 1 tab PO DAILY 12/04/16 [History] Tums 1 tab PO PRN PRN 05/29/18 [History] Docusate [Colace] 100 mg PO BID #60 capsule 07/21/18 [Rx] Ibuprofen [Motrin] 600 mg PO Q6HR PRN #30 tablet 07/21/18 [Rx] OxyCODONE/APAP 5/325 [Percocet 5/325 MG] 1 each PO Q6HR PRN 7 Days #28 tablet 07/21/18 [Rx] Simethicone [Gas-X] 80 mg PO TID PRN tab.chew 07/21/18 [Rx] Allergies/Adverse Reactions: Allergy/AdvReac Type Severity Reaction Status Date / Time No Known Allergies Allergy Verified 12/04/16 10:21 Data Procedures and tests throughout hospitalization: Laboratory Tests 07/19/18 07/19/18 07/19/18 06:10 06:10 10:20 WBC 7.6 RBC 3.78 L Hgb 11.7 Hct 34.5 L MCV 91.3 MCH 31.0 MCHC 33.9 RDW 13.7 Plt Count 197 MPV 9.9 Immature Gran % 0.5 Seg Neutrophils % 56.0 Lymphocytes % 28.9 Monocytes % 7.2 Eosinophils % 7.0 Basophils % 0.4 Neutrophils # 4.3 Lymphocytes # 2.2 Monocytes # 0.6 Eosinophils # 0.5 Basophils # 0.0 Urine Opiates Screen Negative Ur Barbiturates Screen Negative Ur Phencyclidine Scrn Negative Ur Amphetamines Screen Negative U Benzodiazepines Scrn Negative Urine Cocaine Screen Negative U Marijuana (THC) Screen Negative Ur Drug Screen Interp See Below Screen NEGATIVE Baby's Blood Type O RH POSITIVE Mother's Blood Type O RH NEGATIVE Rhogam Indicated YES Rhogam Req for Mother 1 07/20/18 03:57 WBC 12.7 H D RBC 3.09 L Hgb 9.8 L D Hct 29.0 L MCV 93.9 MCH 31.7 MCHC 33.8 RDW 13.6 Plt Count 155 MPV 10.2 Immature Gran % 0.5 Seg Neutrophils % 79.7 Lymphocytes % 11.1 Monocytes % 4.6 Eosinophils % 3.9 Basophils % 0.2 Neutrophils # 10.1 H Lymphocytes # 1.4 Monocytes # 0.6 Eosinophils # 0.5 Basophils # 0.0 Urine Opiates Screen Ur Barbiturates Screen Ur Phencyclidine Scrn Ur Amphetamines Screen U Benzodiazepines Scrn Urine Cocaine Screen U Marijuana (THC) Screen Ur Drug Screen Interp Screen Baby's Blood Type Mother's Blood Type Rhogam Indicated Rhogam Req for Mother Date of admission: 07/19/18 06:01 Primary care physician: Lexi Rodriguez DO Discharging clinician: Lynnette Crocker Anticipated date of discharge: 07/21/18 - Patient Status Disposition: Home, Self-Care Condition: Good Functional capacity at discharge: independent ambulation Overall status at discharge: patient is progressing back to baseline - Discharge Instructions Follow Up With: Lexi Rodriguez DO [Primary Care Provider] - - Diet and Activity Activity: increase activity as tolerated Diet: regular diet Hospital Course Reason for admission: section Delivery: section Episiotomy: none Laceration: none Other procedures: none complications: none Discharge diagnosis: IUP at term delivered baby: male Hospital course: - Date of procedure: 07/19/18 Preop diagnosis: other (Term 39 as her symptoms weeks, previous section 2, advanced maternal age) Post-op diagnosis: same Procedure: repeat low transverse Surgeon: Artur Alonso Quantitated Blood Loss: 300 Was there an pediatric physician assistant present: Yes Slide Forming Machine Tender: Preston Dowling ([email or web address]) Stick Roller: Luis Angel Gonzalez Anesthesia Type: Spinal section complications: none Disposition: L&D Recovery Room - (s) Infant A Infant Delivery Date: 07/19/18 Delivery Time: :23 Presentation: vertex Route of delivery: other ( section) Gender: Male Pounds: 5 Ounces: 15 Gram Weight: 2680 kg at 1 minute: 9 at 5 minutes: 9 Shoulder Dystocia: not encountered Specimens collected: cord blood Placenta: spontaneous Cord: 3 umbilical vessels Time Attestation: Total time spent providing and/or coordinating discharge services: Time Spent: Less than 30 minutes - VTE Documentation of Mechanical Device: Intermittent pneumatic compression device Exam - Constitutional Vitals: Temp Pulse Resp BP Pulse Ox 97.9 F 57 14 112/76 96 07/21/18 08:07 07/21/18 08:07 07/21/18 08:07 07/21/18 08:07 07/21/18 08:07 General appearance IM: A&O X 3 - Respiratory Respiratory exam: Present: CTAB - Cardiovascular Cardiovascular exam IM: Present: RRR - GI/Abdominal Incision: intact (dermabond in place) - Rectal Rectal exam: normal inspection - External exam: normal external exam Uterine Tone: Firm Uterus Position: 1 Finger Below Umbilicus - Extremities Exam Extremities exam IM: Present: pedal edema (mild bilaterally) - Neurological Exam Neurological exam: normal gait, oriented X3 - Psychiatric Additional comments: reports good mood, plans to restart nuvaring in 4-6 weeks
[2018-07-21] MEDS: *HR* OxyCODONE/APAP 5/325 TABLET PO PRN (11:06)
[2018-07-21] MEDS: Prenatal Vit/FA 1 EACH TABLET PO SCH (11:06)
== END 2018-07-21 11:25 | disposition home or self-care (01) | DRG 788 ==
LOC: 1NENULAB 06:01 → 1NENUOBS 12:38
PROVIDERS: ADMIT Obstetrics & Gynecology; ATTEND Obstetrics & Gynecology